=== PATIENT | female | born 1960 ===

== ENCOUNTER → 2016-08-11 | Outpatient (CLI) | payer BC ==
--- NOTE | 2016-08-12 08:04 | US ---
EXAM DESCRIPTION: US ABDOMEN CLINICAL HISTORY: RIGHT UPPER QUADRANT PN COMPARISON: None. TECHNIQUE: Real-time sonographic images of the abdomen are obtained. FINDINGS: Pancreas is unremarkable. The right lobe of the liver measures 15.4cm. The liver is diffusely heterogeneous and increased in echogenicity. No focal hepatic mass is seen. The gallbladder is normally distended and free of abnormal internal echogenicities. No gallbladder wall thickening or pericholecystic fluid is seen. The common bile duct measures 2.5 mm in greatest diameter. The right kidney measures 10.9 x 4.9 x 5.8 cm. The left kidney measures 11.2 x 6.6 x 5.2 cm. Both kidneys show normal renal cortical echogenicity. No hydronephrosis is seen. The spleen measures 11.1 cm. Visualized IVC and abdominal aorta are within normal limits. IMPRESSION: Heterogeneous increased echogenicity of the liver is seen. This is a nonspecific finding, but could indicate diffuse fatty infiltration of the liver. Liver size is within normal limits. Electronically signed by: Sylvester Cloud MD 08/12/2016 08:03
== END | disposition home or self-care (01) ==
LOC: US 08:27
PROVIDERS: ATTEND Nurse Practitioner Family
DX: R10.11 Right upper quadrant pain (principal)

== ENCOUNTER → 2019-04-25 | Outpatient (CLI) | payer BC ==
--- NOTE | 2019-04-30 15:45 | MAM ---
EXAM DESCRIPTION: 3D Screening BILATERAL : Digital Mammography. CLINICAL HISTORY: 58 years Female Screening . No complaints. No personal or family history of breast cancer. Menarche age 13. Childbirth. Postmenopausal unknown duration. No HRT. Lifetime risk of developing breast cancer (Tyrer-Cuzick model)(%): 3.7. COMPARISON: Baseline study at this facility.. No prior reports available. TECHNIQUE: Bilateral CC and MLO projection full-field images, digital tomosynthesis mammographic technique. Bilateral digital 2-D full-field MLO images. CAD not available for tomosynthesis or 2-D images. FINDINGS: The breast parenchymal density pattern is: Scattered areas of fibroglandular density. No skin thickening or nipple retraction. Focal asymmetry denser than the surrounding soft tissues at the 9:00 position of the middle third of the right breast approximately 5 cm from the nipple. Not associated with microcalcifications. No new focal, stellate mass or density, focal asymmetry , and no suspicious microcalcifications left breast. Stable mammograms compared to prior study. IMPRESSION: BI-RADS CATEGORY: 0 - INCOMPLETE- Need additional imaging evaluation. FOLLOW-UP: Recall for additional imaging: Full-field LM 2-D and tomosynthesis mammographic technique right breast. Followed by directed right breast ultrasound region of interest.. Written communication concerning the IMPRESSION and Follow-up, will be mailed to the patient and referring health care provider. Electronically signed by: Abel Madrigal MD 04/30/2019 3:43 PM [employer]AND OPERATOR
== END ==
LOC: MAMMO 16:00
PROVIDERS: ATTEND Nurse Practitioner Family
DX: Z12.31 Encounter for screening mammogram for malignant neoplasm of breast (principal)

== ENCOUNTER → 2019-05-07 | Outpatient (CLI) | payer BC ==
--- NOTE | 2019-05-08 17:36 | US ---
EXAM DESCRIPTION: 3D Diagnostic, Right (accession [id number]), Breast,Right (accession [id number]): Ultrasound CLINICAL HISTORY: 58 yearsFemaleABNORMAL MAMMO focal asymmetry 9:00 position middle third right breast 5 cm from the nipple. Lifetime risk of developing breast cancer (Tyrer-Cuzick model)(%): 3.7. COMPARISON: Bilateral screening digital breast tomosynthesis 25 April 2019. TECHNIQUE: Right breast LM projection full-field images, digital tomosynthesis technique. Right breast 2-D digital full-field images. LM Projection. CAD not available. . Transcutaneous scanning of the right breast utilizing lopez-scale and Doppler modes. Scanning performed by the insurance analyst and Dr. Madrigal. Patient primarily Prydein[place]-speaking. Accompanied by Ukrainian speaking thermite bomb loader family member. FINDINGS: The breast parenchymal density pattern is: Scattered areas of fibroglandular density. No skin thickening or nipple retraction focal asymmetry seen on the screening examination is not well seen on this examination. No focal, stellate mass or density, , and no suspicious microcalcifications right breast. Ultrasound: Scanning lateral right breast middle third. Circumscribed mass hypoechoic with eccentric echogenic hilum most likely a lymph node. Minimal vascularity. Dimensions are 7.3 x 5.5 mm. No dominant solid mass. No distinct cyst. No large calcifications. No overlying skin changes. IMPRESSION: Benign exam. BIRAD CATEGORY: 2 BENIGN FINDINGS. RECOMMENDATIONS: FOLLOW UP: Return to routine digital bilateral mammographic screening, one year interval from April 2019. Written communication explaining the IMPRESSION and follow-up, will be mailed to the patient and referring health care provider. The FINDINGS and the FOLLOW-UP plan were reviewed in person with the patient and the Ukrainian thermite bomb loader after the examination. According to the [employer], yearly mammograms are recommended starting at age 40 and continuing as long as a woman is in good health. Any breast change noted on a breast self-exam should be reported promptly to the patient's healthcare provider. Breast MRI is recommended for women with an approximately 20-25% or greater lifetime risk of breast cancer, including women with a strong family history of breast or ovarian cancer and women who have been treated for Hodgkin's disease. A negative mammographic report should not delay tissue diagnosis in patients with significant clinical history or physical findings. Extremely dense breast tissue limits the sensitivity of digital mammography. Electronically signed by: Abel Madrigal MD 05/08/2019 5:[address] [facility]
== END | disposition home or self-care (01) ==
LOC: MAMMO 14:11
PROVIDERS: ATTEND Nurse Practitioner Family
DX: R92.8 Other abnormal and inconclusive findings on diagnostic imaging of breast (principal)
CPT/HCPCS: 76641; 77065; G0279

== ENCOUNTER → 2020-06-04 | Outpatient (CLI) | payer BC ==
--- NOTE | 2020-06-05 18:54 | MAM ---
EXAM DESCRIPTION: 3D Screening BILATERAL : Digital Mammography. CLINICAL HISTORY: 59 years Female screening for malignant neoplasm of breast . No complaints and no family history of breast cancer. Menarche age 13. No childbirth. Premenopausal. No HRT.. Lifetime risk of developing breast cancer (Tyrer-Cuzick model)(%): 5.6. COMPARISON: Bilateral screening digital breast tomosynthesis April 2019 and diagnostic digital wrist tomosynthesis same month. TECHNIQUE: Bilateral CC and MLO projection full-field images, digital tomosynthesis mammographic technique. Bilateral digital 2-D full-field MLO images. and CC images. CAD available for 2-D images. FINDINGS: The breast parenchymal density pattern is: Scattered areas of fibroglandular density. No skin thickening or nipple retraction No new focal, stellate mass or density, focal asymmetry , and no suspicious microcalcifications bilaterally. Stable mammograms compared to prior study. IMPRESSION: No suspicious or significant imaging findings. BI-RADS CATEGORY: 1 - NEGATIVE RECOMMENDATIONS: FOLLOW UP: Routine digital bilateral screening, one year interval from May 2020. Written communication explaining the findings and follow-up, will be mailed to the patient and referring health care provider. According to the [employer], yearly mammograms are recommended starting at age 40 and continuing as long as a woman is in good health. Any breast change noted on a breast self-exam should be reported promptly to the patient's healthcare provider. Breast MRI is recommended for women with an approximately 20-25% or greater lifetime risk of breast cancer, including women with a strong family history of breast or ovarian cancer and women who have been treated for Hodgkin's disease. A negative mammographic report should not delay tissue diagnosis in patients with significant clinical history or physical findings. Extremely dense breast tissue limits the sensitivity of digital mammography. Electronically signed by: Abel Madrigal MD 06/05/2020 6:52 PM [employer]EN[employer] OFFICE INST[employer]ER
== END ==
LOC: MAMMO 09:12
PROVIDERS: ATTEND Nurse Practitioner Family
DX: Z12.31 Encounter for screening mammogram for malignant neoplasm of breast (principal)